=== PATIENT | female | born 1970 | race Caucasian/White ===

== ENCOUNTER 2017-11-30 12:52 | Emergency (ER) | payer SELFPAY ==
[~2017-11-30] VITALS: Ht 160 cm; Wt 78.4 kg
[~2017-11-30 12:52] MED LIST: CEPH500C5 PO; DIAZ-351 PO; FLUC200T PO; IBUP-1986 PO; PHEN-873 PO; PSEU120T56 PO
[2017-11-30] MEDS ORDERED: bacitracin 15gm ointment TP ONE (13:25)
[2017-11-30] MEDS ORDERED: LIDOcaine 1.5% w/epinephrine 1:200,000 5ml ampul IJ ONE (13:25)
[2017-11-30 14:45] VITALS: BP 115/89
== END 2017-11-30 14:46 | disposition home or self-care (01) ==
LOC: ER 12:52
DX: S81.011A Laceration without foreign body, right knee, initial encounter (principal); Z98.890 Other specified postprocedural states; Z90.710 Acquired absence of both cervix and uterus; Z79.899 Other long term (current) drug therapy; Z88.5 Allergy status to narcotic agent; W01.0XXA Fall on same level from slipping, tripping and stumbling without subsequent striking against object, initial encounter; Y93.01 Activity, walking, marching and hiking; Y92.89 Other specified places as the place of occurrence of the external cause; Y99.9 Unspecified external cause status
CPT/HCPCS: 12002; 99283; A6449; J3490

== ENCOUNTER 2018-02-15 17:24 | Emergency (ER) | payer BC ==
[~2018-02-15] VITALS: Ht 157.5 cm; Wt 77.1 kg
[2018-02-15 17:25] VITALS: BP 154/85
[2018-02-15] MEDS ORDERED: LORazepam 1 MG tablet PO ONE (17:55)
[2018-02-15] MEDS ORDERED: diphenhydrAMINE 25mg capsule PO ONE (17:55)
[2018-02-15 18:08] LABS: BASOPHILS % (AUTO) 0.4 % (0-1); EOSINOPHILS # (AUTO) 0.3 X10'3 (0-0.9); EOSINOPHILS % (AUTO) 3.8 % (0-6); HEMOGLOBIN 13.3 g/dl (12.0-16.0); LYMPHOCYTES # (AUTO) 2.2 X10'3 (1.1-4.8); LYMPHOCYTES % (AUTO) 27.6 % (21-51); MEAN CORPUSCULAR HEMOGLOBIN 32.6 PG (27.0-31.0); MEAN CORPUSCULAR HGB CONC 34.2 % (33.0-36.5); MEAN CORPUSCULAR VOLUME 95.4 FL (78-98); MEAN PLATELET VOLUME 7.8 FL (7.4-10.4); MONOCYTES # (AUTO) 0.5 X10'3 (0-0.9); MONOCYTES % (AUTO) 6.2 % (2-12); NEUTROPHILS # (AUTO) 4.8 X10'3 (1.8-7.7); PLATELET COUNT 278 X10'3 (140-440); RED BLOOD COUNT 4.08 X10'6 (4.20-5.60); RED CELL DISTRIBUTION WIDTH 13.1 % (11.5-14.5); WHITE BLOOD COUNT 7.8 X10'3 (4.5-11.0)
[2018-02-15 18:18] LABS: CLARITY,URINE CLEAR (Clear); COLOR,URINE STRAW (Yellow); GLUCOSE, URINE NEGATIVE (Neg); KETONES,URINE NEGATIVE (Neg); LEUKOCYTE ESTERASE ,URINE NEGATIVE (Neg); NITRITES, URINE NEGATIVE (Neg); OCCULT BLOOD,URINE NEGATIVE (Neg); PH,URINE 7.5 (4.8-8.0); PROTEIN,URINE NEGATIVE (Neg); UROBILINOGEN,URINE 0.2 E.U/dL (0.2-1.0)
[2018-02-15 18:22] LABS: UA COLLECTION TYPE NON-SPECIFIED
[2018-02-15 18:24] LABS: URINE HCG NEGATIVE (NEG)
[2018-02-15 18:28] LABS: ALANINE AMINOTRANSFERASE 28 U/L (12-78); ALBUMIN 3.8 G/DL (3.4-5.0); ALBUMIN/GLOBULIN RATIO 1.2 (1.1-1.5); ALKALINE PHOSPHATASE 67 IU/L (46-116); ANION GAP 8 (8-16); ASPARTATE AMINO TRANSFERASE 16 U/L (10-37); BILIRUBIN,TOTAL 0.2 MG/DL (0.1-1.0); BLOOD UREA NITROGEN 11 MG/DL (7-18); BUN/CREATININE RATIO 19.6 (6.6-38.0); CALCIUM 9.1 MG/DL (8.5-10.1); CHLORIDE 103 MMOL/L (99-107); CREATININE 0.56 MG/DL (0.40-0.90); GLUCOSE 91 MG/DL (70-104); SODIUM 141 MMOL/L (135-145); TOTAL CARBON DIOXIDE 30.5 MMOL/L (24-32); TOTAL PROTEIN 7.1 G/DL (6.4-8.2); eGFR > 90 ML/MIN
[2018-02-15 18:30] LABS: URINE AMPHETAMINE SCREEN NEGATIVE (Neg); URINE BARBITUATE SCREEN NEGATIVE (Neg); URINE BENZODIAZEPINES SCREEN NEGATIVE (Neg); URINE CANNABINOID SCREEN NEGATIVE (Neg); URINE COCAINE SCREEN NEGATIVE (Neg); URINE METHADONE SCREEN NEGATIVE (Neg); URINE OPIATE SCREEN NEGATIVE (Neg); URINE PHENCYCLIDINE SCREEN NEGATIVE (Neg)
[2018-02-15] MEDS ORDERED: TRAM50TA2 PO (18:30)
[2018-02-15] MEDS ORDERED: THYR16.2 PO (18:30)
[2018-02-15 18:38] LABS: ETHANOL < 0.010 GM/DL (0.0-0.010)
[2018-02-15] MEDS ORDERED: DIPH25CA83 PO (23:32)
[2018-02-15] MEDS ORDERED: THYR32.510 PO (23:35)
== END 2018-02-15 23:09 ==
LOC: ER 17:24
DX: R45.851 Suicidal ideations (principal); E03.9 Hypothyroidism, unspecified; F31.9 Bipolar disorder, unspecified; Z90.710 Acquired absence of both cervix and uterus; Z88.6 Allergy status to analgesic agent
CPT/HCPCS: 36415; 80053; 80305; 80320; 81003; 81025; 84443; 85025; 99285; Q0163

== ENCOUNTER 2018-02-15 21:37 | Inpatient (IN) | payer BC, MEDICARE ==
[~2018-02-15] VITALS: Ht 160 cm; Wt 76.1 kg
[~2018-02-15 21:37] MED LIST changes: +THYR16.2 PO; +TRAM50TA2 PO
[2018-02-15] MEDS ORDERED: DIPH25CA83 PO (23:32)
[2018-02-15] MEDS ORDERED: THYR32.510 PO (23:35)
[2018-02-16] MEDS ORDERED: mag hydrox/Alum hydrox/simeth 30ml oral suspension PO PRN (01:00)
[2018-02-16] MEDS ORDERED: acetaminophen 325mg tablet PO PRN (01:00)
[2018-02-16] MEDS ORDERED: diphenhydrAMINE 25mg capsule PO PRN (06:05)
[2018-02-16] MEDS: thyroid, pork 30mg tablet PO SCH (08:00)
[2018-02-16 08:04] LABS: HEMOGLOBIN A1C 5.1 % (4.5-6.2)
[2018-02-16 08:05] VITALS: BP 113/78
[2018-02-16 08:10] LABS: CHOL/HDL RATIO 2.8 (0.00-4.99); CHOLESTEROL 172 MG/DL (0-200); HDL CHOLESTEROL 61 MG/DL (35-60); LDL CHOLESTEROL 96 MG/DL (50-100); TRIGLYCERIDES 61 MG/DL (20-135)
[2018-02-16] MEDS: LORazepam 1 MG tablet PO PRN ×2 (08:12→16:01)
[2018-02-16] MEDS: magnesium hydroxide 30ml (MOM) UD suspension PO PRN (16:33)
[2018-02-16] MEDS ORDERED: traZODone 50mg tablet PO PRN (17:25)
[2018-02-16] MEDS ORDERED: LORazepam 1 MG tablet PO PRN (17:25)
[2018-02-16] MEDS ORDERED: hydrOXYzine 10 MG tablet PO PRN (17:25)
[2018-02-16] MEDS: lurasidone 20mg tablet PO SCH (17:57)
[2018-02-16 20:00] VITALS: BP 110/59
[2018-02-16] MEDS: acetaminophen 325mg tablet PO PRN (20:54)
[2018-02-17] MEDS ORDERED: venlafaxine XR 37.5mg cap (Q24H) PO SCH (08:00)
[2018-02-17 08:15] VITALS: BP 103/74
[2018-02-17] MEDS: thyroid, pork 30mg tablet PO SCH (08:18)
[2018-02-17] MEDS: ibuprofen 200mg tablet PO PRN (09:10)
[2018-02-17] MEDS: lurasidone 20mg tablet PO SCH (17:43)
[2018-02-17 19:00] VITALS: BP 139/61
[2018-02-17] MEDS: acetaminophen 325mg tablet PO PRN (20:29)
[2018-02-17] MEDS ORDERED: traZODone 50mg tablet PO PRN (20:35)
[2018-02-17] MEDS: magnesium hydroxide 30ml (MOM) UD suspension PO PRN (20:43)
[2018-02-18] MEDS ORDERED: levoTHYROXINE 25mcg tablet PO SCH (07:00)
[2018-02-18 08:00] VITALS: BP 111/67
[2018-02-18] MEDS ORDERED: venlafaxine XR 37.5mg cap (Q24H) PO SCH (08:00)
[2018-02-18] MEDS: ibuprofen 200mg tablet PO PRN (09:05)
[2018-02-18] MEDS ORDERED: HYDR-3717 PO (15:50)
[2018-02-18] MEDS ORDERED: TRAZ-218 PO (15:50)
[2018-02-18] MEDS ORDERED: LURA20TA PO (15:50)
[2018-02-18] MEDS ORDERED: VENL75CA61 PO (15:50)
[2018-02-18] MEDS ORDERED: LEVO25TA7 PO (15:50)
== END 2018-02-18 17:05 | disposition home or self-care (01) | DRG 885 ==
LOC: ADULT MH 21:37
PROVIDERS: ADMIT Psychiatry & Neurology Psychiatry; ATTEND Psychiatry & Neurology Psychiatry
DX: F31.9 Bipolar disorder, unspecified (principal); E03.9 Hypothyroidism, unspecified; F43.10 Post-traumatic stress disorder, unspecified; F90.9 Attention-deficit hyperactivity disorder, unspecified type; Z81.8 Family history of other mental and behavioral disorders; Z90.710 Acquired absence of both cervix and uterus; Z88.8 Allergy status to other drugs, medicaments and biological substances; Z79.899 Other long term (current) drug therapy; Z90.49 Acquired absence of other specified parts of digestive tract; Z81.1 Family history of alcohol abuse and dependence
CPT/HCPCS: 36415; 80061; 83036; 84439; 84443; 84480; 87070; Q0163

== ENCOUNTER 2018-10-10 11:00 | Emergency (ER) | payer BC, MEDICARE ==
[~2018-10-10] VITALS: Ht 165.1 cm; Wt 79.1 kg
[~2018-10-10 11:00] MED LIST changes: -CEPH500C5 PO; -DIAZ-351 PO; -FLUC200T PO; +HYDR-3717 PO; +LEVO25TA7 PO; +LURA20TA PO; -PHEN-873 PO; -PSEU120T56 PO; -THYR16.2 PO; -TRAM50TA2 PO; +TRAZ-218 PO; +VENL75CA61 PO
[2018-10-10] MEDS ORDERED: BUPR150T8 PO (11:22)
[2018-10-10] MEDS ORDERED: DIVA125T31 PO ×2 (11:23→11:25)
[2018-10-10] MEDS ORDERED: AMPH10CA3 PO (11:27)
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
[2018-10-10 12:17] LABS: CLARITY,URINE SLIGHTLY CLOUDY (Clear); COLOR,URINE STRAW (Yellow); GLUCOSE, URINE NEGATIVE (Neg); KETONES,URINE 15 mg/dl (Neg); LEUKOCYTE ESTERASE ,URINE NEGATIVE (Neg); NITRITES, URINE NEGATIVE (Neg); OCCULT BLOOD,URINE NEGATIVE (Neg); PH,URINE 5.5 (4.8-8.0); PROTEIN,URINE NEGATIVE (Neg); UROBILINOGEN,URINE 0.2 E.U/dL (0.2-1.0)
--- NOTE | 2018-10-10 12:17 | NUR ---
PT UP FROM THE BED TO THE BATHROOM.
--- NOTE | 2018-10-10 12:20 | NUR ---
PT AMBULATES WITH A STEADY GAIT.
[2018-10-10 12:23] LABS: URINE AMPHETAMINE SCREEN NEGATIVE (Neg); URINE BARBITUATE SCREEN NEGATIVE (Neg); URINE BENZODIAZEPINES SCREEN NEGATIVE (Neg); URINE CANNABINOID SCREEN NEGATIVE (Neg); URINE COCAINE SCREEN NEGATIVE (Neg); URINE METHADONE SCREEN NEGATIVE (Neg); URINE OPIATE SCREEN NEGATIVE (Neg); URINE PHENCYCLIDINE SCREEN NEGATIVE (Neg)
[2018-10-10 12:25] LABS: UA COLLECTION TYPE CLN CATCH MIDSTREAM
[2018-10-10 12:36] LABS: MUCUS STRANDS FEW /LPF (Neg); SQUAMOUS EPITHELIAL CELL,UR FEW /LPF (FEW); TRANSITIONAL EPI CELLS,URINE FEW /HPF
[2018-10-10 12:37] LABS: BACTERIA,URINE NONE SEEN /HPF (Neg); RBC,URINE 0-2 /HPF (0-2); WBC,URINE 0-4 /HPF (0-4)
[2018-10-10 13:24] LABS: URINE HCG NEGATIVE (NEG)
[2018-10-10 13:37] LABS: BASOPHILS # (AUTO) 0.1 X10'3 (0-0.2); BASOPHILS % (AUTO) 0.7 % (0-1); EOSINOPHILS # (AUTO) 0.2 X10'3 (0-0.9); EOSINOPHILS % (AUTO) 2.1 % (0-6); HEMATOCRIT 41.6 % (35.0-45.0); HEMOGLOBIN 14.2 g/dl (12.0-16.0); LYMPHOCYTES # (AUTO) 1.3 X10'3 (1.1-4.8); LYMPHOCYTES % (AUTO) 14.8 % (21-51); MEAN CORPUSCULAR HEMOGLOBIN 32.7 PG (27.0-31.0); MEAN CORPUSCULAR HGB CONC 34.1 g/dL (33.0-36.5); MEAN CORPUSCULAR VOLUME 95.9 FL (78-98); MEAN PLATELET VOLUME 8.6 FL (7.4-10.4); MONOCYTES # (AUTO) 0.4 X10'3 (0-0.9); MONOCYTES % (AUTO) 4.7 % (2-12); NEUTROPHILS # (AUTO) 6.7 X10'3 (1.8-7.7); NEUTROPHILS % (AUTO) 77.7 % (42-75); PLATELET COUNT 235 X10'3 (140-440); RED BLOOD COUNT 4.34 X10'6 (4.20-5.60); WHITE BLOOD COUNT 8.6 X10'3 (4.5-11.0)
[2018-10-10 13:43] LABS: ALANINE AMINOTRANSFERASE 39 U/L (12-78); ALBUMIN 3.6 G/DL (3.4-5.0); ALBUMIN/GLOBULIN RATIO 1.2 (1.1-1.5); ALKALINE PHOSPHATASE 56 IU/L (46-116); ANION GAP 6 (8-16); ASPARTATE AMINO TRANSFERASE 19 U/L (10-37); BILIRUBIN,TOTAL 0.2 MG/DL (0.1-1.0); BLOOD UREA NITROGEN 14 MG/DL (7-18); CALCIUM 9.1 MG/DL (8.5-10.1); CHLORIDE 104 MMOL/L (99-107); CREATININE 0.56 MG/DL (0.40-0.90); GLUCOSE 93 MG/DL (70-104); POTASSIUM 3.9 MMOL/L (3.5-5.1); SODIUM 140 MMOL/L (135-145); TOTAL CARBON DIOXIDE 30.4 MMOL/L (24-32); TOTAL PROTEIN 6.6 G/DL (6.4-8.2); eGFR > 90 ML/MIN
[2018-10-10 13:51] LABS: ETHANOL < 0.010 GM/DL (0.0-0.010)
--- NOTE | 2018-10-10 14:20 | NUR ---
Pt sitting up in bed, no complaints.
[2018-10-10] MEDS ORDERED: acetaminophen 325mg tablet PO PRN (16:15)
--- NOTE | 2018-10-10 16:26 | NUR ---
Pt currently being seen by Be Dunaway.
--- NOTE | 2018-10-10 17:35 | NUR ---
Spoke with Celia from [facility]. Pt has been accepted to their unit. Transfer will be after change of shift.
--- NOTE | 2018-10-10 18:40 | NUR ---
Assumed care pt lying in bed talking with male visitor.
[2018-10-10] MEDS ORDERED: buPROPion SR 150mg tablet PO SCH (20:00)
[2018-10-10] MEDS ORDERED: zolpidem 5mg tablet PO ONE (20:05)
[2018-10-10] MEDS ORDERED: divalproex sod 125mg tablet.DR PO SCH (21:00)
[2018-10-10] MEDS ORDERED: lithium carbonate 150mg capsule PO SCH (21:00)
--- NOTE | 2018-10-10 21:06 | NUR ---
Pt refused [place] and Depakote. "I don't want to be drugged till i'm a zombie." Pt took Ambien for sleep agreed to talk to MD tomorrow at the Behavioral [facility] Unit about medications. Pt sleeping at this time waiting for transfer to Behavoiral health unit.
--- NOTE | 2018-10-10 21:36 | NUR ---
Pt leaving floor via W/C with Lamberto from .
[2018-10-10 21:37] VITALS: BP 113/62
[2018-10-11] MEDS ORDERED: lurasidone 20mg tablet PO SCH (07:30)
[2018-10-11] MEDS ORDERED: divalproex sod 125mg tablet.DR PO SCH (08:00)
[2018-10-11] MEDS ORDERED: buPROPion SR 150mg tablet PO SCH (08:00)
[2018-10-11] MEDS ORDERED: ADDERALL 10 MG PO SCH (08:00)
[2018-10-11] MEDS ORDERED: DEXTROAMPHETAMINE PO SCH (08:00)
[2018-10-11] MEDS ORDERED: AMPHETAMINE PO SCH (08:00)
== END 2018-10-10 21:45 ==
LOC: ER 11:01 → EEVIPCON 11:01 → ER 21:45
DX: R45.851 Suicidal ideations (principal); F31.9 Bipolar disorder, unspecified; E03.9 Hypothyroidism, unspecified; Z90.710 Acquired absence of both cervix and uterus; Z98.890 Other specified postprocedural states; Z88.8 Allergy status to other drugs, medicaments and biological substances; Z79.899 Other long term (current) drug therapy
CPT/HCPCS: 36415; 80053; 80305; 80320; 81001; 81025; 84443; 85025; 99284; 99285

== ENCOUNTER 2018-10-10 19:40 | Inpatient (IN) | payer BC, MEDICARE, OTHER ==
[~2018-10-10] VITALS: Ht 162.6 cm; Wt 80.3 kg
[~2018-10-10 19:40] MED LIST changes: +AMPH10CA3 PO; +BUPR150T8 PO; +DIVA125T31 PO
[2018-10-10] MEDS ORDERED: mag hydrox/Alum hydrox/simeth 30ml oral suspension PO PRN (21:10)
[2018-10-10] MEDS ORDERED: loperamide 2mg capsule PO PRN (21:10)
[2018-10-10] MEDS ORDERED: acetaminophen 325mg tablet PO PRN (21:10)
[2018-10-10] MEDS ORDERED: magnesium hydroxide 30ml (MOM) UD suspension PO PRN (21:10)
[2018-10-10] MEDS: acetaminophen 325mg tablet PO PRN (22:30)
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
[2018-10-11 07:57] LABS: CHOL/HDL RATIO 3.1 (0.00-4.99); CHOLESTEROL 195 MG/DL (0-200); HDL CHOLESTEROL 62 MG/DL (35-60); LDL CHOLESTEROL 114 MG/DL (50-100); TRIGLYCERIDES 84 MG/DL (20-135)
[2018-10-11] MEDS ORDERED: buPROPion SR 150mg tablet PO SCH (08:00)
[2018-10-11] MEDS ORDERED: divalproex sodium 250mg tablet PO SCH ×2 (08:00→21:00)
[2018-10-11] MEDS: DEXTROAMPHETAMINE PO SCH (08:00)
[2018-10-11] MEDS: AMPHETAMINE PO SCH (08:00)
[2018-10-11 08:02] LABS: VALPROATE 3 UG/ML (50-100)
[2018-10-11 08:04] LABS: HEMOGLOBIN A1C 5.2 % (4.5-6.2)
[2018-10-11] MEDS ORDERED: tuberculin, purif. prot. deriv. 5 units/0.1ml ID ONE (10:00)
[2018-10-11] MEDS ORDERED: SUMAtriptan 5 mg Nasal Spray NS PRN (11:00)
[2018-10-11] MEDS: LORazepam 1 MG tablet PO PRN (11:48)
[2018-10-11] MEDS: SUMAtriptan succ. 6 MG/0.5ml vial SQ PRN ×2 (12:07→21:17)
--- NOTE | 2018-10-11 17:16 | NUR ---
Nursing Progress Note: Legal hold: 5150 Client on involuntary status for DTS. Report received from ANGE Zambrano with use of SBAR Why are they here: 48-year-old female, who has known bipolar disorder, brought herself to the ER for suicidal ideation. Patient states she has a plan to river driver her car off of [place] [address] to kill herself. Pt reports she was "embarrassed" to admit this. Patient states she has had increasing depression recently due to new life stressors. Assessment What has happened this shift: Pt was sleeping at shift change. She refused her AM medications. She was cooperative with 1:1 assessment. She stated, "I'm irritated, don't want to be here." She indicated she was depressed. Pt stated, "Want to go to sleep and not wake up." Reports SI, but says there is not way to do it here. She reported a headache, nausea, eyes sensitive to light and blurry vision. She said the pain behind her eyes was throbbing 7/10. PRN Imitrex subcut relieved pt's headache symptoms. PRN Ativan given for anxiety. Pt does not know the date of her last BM, MOM administered. Pt did not attend groups. PPD placed at 1517. She spent much of the day napping in bed. S/I, H/I: Passive, "can't do anything while here." A/VH: Denies Sleep: Napped ADL's: Independent Group attendance: None. Were meds taken: Refused AM medications Any med S/E: None reported Mental Status Exam Appearance: Green scrubs, tattoos Eye contact: Direct Behavior: Fatigue intensified by migraine Speech: Normal rate/rhythm. Mood: Depressed Affect: Blunted Thought process: Linear Thought Content: Does not want to be here Cognition: A/O x4 Insight: Poor Judgment: Poor Interventions PRN's used: Imitrex, Ativan, MOM Therapeutic interventions: Provided 1:1 therapeutic communication and active listening, administered medicine w/education and monitored for side effects, encouraged attention to ADL's, monitored blood glucose, Q 15 min monitoring for safety check, maintained therapeutic milieu. Restraints/seclusion/emergency medication: N/A Justification of Continued Inpatient Treatment: Pt endorses passive SI, but states she can't do anything while here. Continued therapeutic support and medication management needed to provide stabilization, prevent decompensation, and decrease risk to patient and readmittance. Addendum: 10/11/18 at 1721 by Shanice Abraham RN Amend: Requested the pt have someone bring in her home medication: Adderall.
[2018-10-11] MEDS: zolpidem 5mg tablet PO PRN (21:56)
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
[2018-10-12] MEDS: acetaminophen 325mg tablet PO PRN (06:13)
[2018-10-12 07:49] VITALS: BP 104/64
[2018-10-12] MEDS: lurasidone 20mg tablet PO SCH (07:54)
[2018-10-12] MEDS: AMPHETAMINE PO SCH (08:00)
[2018-10-12] MEDS: DEXTROAMPHETAMINE PO SCH (08:00)
[2018-10-12] MEDS ORDERED: sennosides/docusate sodium tablet PO ONE (08:00)
[2018-10-12] MEDS: SUMAtriptan succ. 6 MG/0.5ml vial SQ PRN ×2 (09:14→19:45)
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
[2018-10-12 20:00] VITALS: BP 122/75
[2018-10-12] MEDS: zolpidem 5mg tablet PO PRN (20:46)
[2018-10-12] MEDS ORDERED: lithium carbonate 150mg capsule PO SCH (21:00)
[2018-10-12] MEDS ORDERED: sennosides/docusate sodium tablet PO SCH (21:00)
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
[2018-10-13] MEDS: LORazepam 1 MG tablet PO PRN (01:01)
[2018-10-13] MEDS: acetaminophen 325mg tablet PO PRN ×3 (01:07→11:42)
--- NOTE | 2018-10-13 01:08 | NUR ---
Nursing Note: Pt. awakens and reports inability to sleep and anxiety r/t generalized acute body pain, states, "It feels like the pain you get when you have a deep tissue massage." PRN Ativan and Tylenol administered, no rash present, will continue to monitor. Pt. received fist dose of [place] at HS, will monitor and endorse to AM shift.
[2018-10-13] MEDS: lurasidone 20mg tablet PO SCH (07:30)
[2018-10-13 07:50] VITALS: BP 97/58
[2018-10-13] MEDS: AMPHETAMINE PO SCH (08:00)
[2018-10-13] MEDS: DEXTROAMPHETAMINE PO SCH (08:00)
[2018-10-13] MEDS ORDERED: LURA20TA PO (14:39)
[2018-10-13] MEDS ORDERED: LITH150C8 PO (14:39)
--- NOTE | 2018-10-13 16:55 | NUR ---
Pt. discharged to home via her personal vehicle. Pt. discharged with personal belongings and valuables. Pt.'s medications ordered from [facility] and brought to pt. via bedside delivery. Pt. denies SI/HI, A/V H. Pt. is alert and oriented x4. Pt. ambulated off of unit. See chart for pt.'s f/u appointments.
[2018-10-13] MEDS ORDERED: lurasidone 20mg tablet PO SCH (17:30)
== END 2018-10-13 16:55 | disposition home or self-care (01) | DRG 885 ==
LOC: ADULT MH 19:40
PROVIDERS: ADMIT Psychiatry & Neurology Psychiatry; ATTEND Psychiatry & Neurology Psychiatry
DX: F31.30 Bipolar disorder, current episode depressed, mild or moderate severity, unspecified (principal); R45.851 Suicidal ideations; F43.12 Post-traumatic stress disorder, chronic; G43.909 Migraine, unspecified, not intractable, without status migrainosus; Z90.49 Acquired absence of other specified parts of digestive tract; Z90.710 Acquired absence of both cervix and uterus; Z79.899 Other long term (current) drug therapy; Z88.8 Allergy status to other drugs, medicaments and biological substances; Z86.59 Personal history of other mental and behavioral disorders; Z81.1 Family history of alcohol abuse and dependence; Z81.3 Family history of other psychoactive substance abuse and dependence; Z81.8 Family history of other mental and behavioral disorders
CPT/HCPCS: 36415; 80061; 80164; 80178; 83036; 87070; J3030